=== PATIENT | male | born 1995 | race Caucasian/White ===

== ENCOUNTER 2018-11-28 19:56 | Emergency (ER) | payer BC, MEDICAID ==
[~2018-11-28] VITALS: Ht 154.9 cm; Wt 79.5 kg
[~2018-11-28 19:56] MED LIST: PEDI1TAB17 PO
[2018-11-28 19:59] VITALS: BP 164/109
[2018-11-28] MEDS ORDERED: ondansetron/PF 4mg/2ml inj IV ONE (20:15)
[2018-11-28] MEDS ORDERED: famotidine/PF 10 mg/ml inj IV ONE (20:15)
[2018-11-28] MEDS ORDERED: pantoprazole 40 MG vial IV ONE (20:15)
[2018-11-28] MEDS ORDERED: normal saline 1000ML IV soln IVB ONE (20:15)
--- NOTE | 2018-11-28 20:30 | NUR ---
parents were able to get the patient onto the gurney.
--- NOTE | 2018-11-28 20:37 | NUR ---
PER ELIAS GOSS, EKG NOT NEEDED AT THIS TIME.
[2018-11-28 20:42] LABS: BASOPHILS # (AUTO) 0.1 X10'3 (0-0.2); BASOPHILS % (AUTO) 0.7 % (0-1); EOSINOPHILS # (AUTO) 0.1 X10'3 (0-0.9); EOSINOPHILS % (AUTO) 0.8 % (0-6); HEMATOCRIT 38.7 % (42.0-52.0); HEMOGLOBIN 11.4 g/dl (14.0-17.9); LYMPHOCYTES # (AUTO) 0.8 X10'3 (1.1-4.8); LYMPHOCYTES % (AUTO) 9.8 % (21-51); MEAN CORPUSCULAR HEMOGLOBIN 17.4 PG (27.0-31.0); MEAN CORPUSCULAR HGB CONC 29.6 g/dL (33.0-36.5); MEAN CORPUSCULAR VOLUME 58.8 FL (78-98); MEAN PLATELET VOLUME 8.8 FL (7.4-10.4); MONOCYTES # (AUTO) 0.3 X10'3 (0-0.9); MONOCYTES % (AUTO) 3.9 % (2-12); NEUTROPHILS # (AUTO) 6.7 X10'3 (1.8-7.7); NEUTROPHILS % (AUTO) 84.8 % (42-75); PLATELET COUNT 322 X10'3 (140-440); RED BLOOD COUNT 6.57 X10'6 (4.70-6.10); RED CELL DISTRIBUTION WIDTH 19.9 % (11.5-14.5); WHITE BLOOD COUNT 7.8 X10'3 (4.5-11.0)
[2018-11-28 21:03] LABS: ALANINE AMINOTRANSFERASE 20 U/L (12-78); ALBUMIN 4.4 G/DL (3.4-5.0); ALKALINE PHOSPHATASE 93 IU/L (46-116); ANION GAP 9 (8-16); ASPARTATE AMINO TRANSFERASE 18 U/L (10-37); BILIRUBIN,TOTAL 0.5 MG/DL (0.1-1.0); BLOOD UREA NITROGEN 19 MG/DL (7-18); BUN/CREATININE RATIO 20.7 (5.4-32.0); CALCIUM 9.2 MG/DL (8.5-10.1); CHLORIDE 105 MMOL/L (99-107); CREATININE 0.92 MG/DL (0.60-1.10); GLUCOSE 109 MG/DL (70-104); LIPASE 101 U/L (73-393); POTASSIUM 4.2 MMOL/L (3.5-5.1); SODIUM 141 MMOL/L (135-145); TOTAL CARBON DIOXIDE 27.3 MMOL/L (24-32); TOTAL PROTEIN 8.6 G/DL (6.4-8.2); eGFR > 90 ML/MIN
[2018-11-28 21:20] LABS: ANISOCYTOSIS 2+; MICROCYTOSIS 3+; PLATELET ESTIMATE NORMAL
[2018-11-28 21:21] LABS: ELLIPTOCYTES FEW; SCHISTOCYTES FEW
--- NOTE | 2018-11-28 21:50 | NUR ---
gave him approx 1500 mls of soda/sugar water enema and he has pushed some of the liquid out. Having it dwell. Will recheck in a bit. Mom at BS. Digital exam for only very soft bm, not able to feel any chunks that I can grab.
--- NOTE | 2018-11-28 22:00 | NUR ---
very large amount of bm. Pt cleansed.
--- NOTE | 2018-11-28 22:11 | NUR ---
another huge massive bm. Pt cleansed. Mom says she need an antifungal cream. He is started to break out.
[2018-11-28] MEDS ORDERED: terbinafine cream 30gm TP PRN (22:15)
--- NOTE | 2018-11-28 22:45 | NUR ---
Moderate sized BM at this time, hygiene provided, tolerated well, parents at bedside.
== END 2018-11-28 23:20 | disposition home or self-care (01) ==
LOC: ER 19:57
DX: K59.00 Constipation, unspecified (principal); K29.70 Gastritis, unspecified, without bleeding; Z90.49 Acquired absence of other specified parts of digestive tract; Z86.69 Personal history of other diseases of the nervous system and sense organs; Z79.899 Other long term (current) drug therapy
CPT/HCPCS: 36415; 74176; 80053; 83690; 85025; 96361; 96374; 96375; 99284; C9113; J2405; J3490; J7030

== ENCOUNTER 2019-01-04 00:14 | Emergency (ER) | payer MEDICAID ==
[~2019-01-04] VITALS: Ht 154.9 cm; Wt 77.3 kg
[2019-01-04] MEDS ORDERED: normal saline 1000ML IV soln IVB ONE (01:15)
[2019-01-04] MEDS ORDERED: lactulose 20gm/30ml cup PO ONE (01:15)
[2019-01-04] MEDS ORDERED: magnesium hydroxide 30ml (MOM) UD suspension PO ONE (01:15)
[2019-01-04 01:19] LABS: BASOPHILS # (AUTO) 0.1 X10'3 (0-0.2); BASOPHILS % (AUTO) 0.7 % (0-1); EOSINOPHILS # (AUTO) 0.3 X10'3 (0-0.9); EOSINOPHILS % (AUTO) 2.8 % (0-6); HEMATOCRIT 37.8 % (42.0-52.0); HEMOGLOBIN 11.5 g/dl (14.0-17.9); LYMPHOCYTES # (AUTO) 1.1 X10'3 (1.1-4.8); LYMPHOCYTES % (AUTO) 12.6 % (21-51); MEAN CORPUSCULAR HEMOGLOBIN 18.1 PG (27.0-31.0); MEAN CORPUSCULAR HGB CONC 30.3 g/dL (33.0-36.5); MEAN CORPUSCULAR VOLUME 59.9 FL (78-98); MEAN PLATELET VOLUME 8.7 FL (7.4-10.4); MONOCYTES # (AUTO) 0.5 X10'3 (0-0.9); NEUTROPHILS # (AUTO) 6.9 X10'3 (1.8-7.7); NEUTROPHILS % (AUTO) 77.9 % (42-75); PLATELET COUNT 295 X10'3 (140-440); RED BLOOD COUNT 6.32 X10'6 (4.70-6.10); RED CELL DISTRIBUTION WIDTH 20.3 % (11.5-14.5); WHITE BLOOD COUNT 8.9 X10'3 (4.5-11.0)
[2019-01-04 01:32] LABS: ALANINE AMINOTRANSFERASE 22 U/L (12-78); ALBUMIN 3.8 G/DL (3.4-5.0); ALKALINE PHOSPHATASE 93 IU/L (46-116); ANION GAP 9 (8-16); ASPARTATE AMINO TRANSFERASE 21 U/L (10-37); BILIRUBIN,TOTAL 0.3 MG/DL (0.1-1.0); BLOOD UREA NITROGEN 12 MG/DL (7-18); BUN/CREATININE RATIO 10.7 (5.4-32.0); CALCIUM 8.8 MG/DL (8.5-10.1); CHLORIDE 106 MMOL/L (99-107); CREATININE 1.12 MG/DL (0.60-1.10); GLUCOSE 149 MG/DL (70-104); LIPASE 85 U/L (73-393); POTASSIUM 3.4 MMOL/L (3.5-5.1); SODIUM 141 MMOL/L (135-145); TOTAL CARBON DIOXIDE 25.7 MMOL/L (24-32); TOTAL PROTEIN 7.6 G/DL (6.4-8.2); eGFR 79 ML/MIN
--- NOTE | 2019-01-04 02:15 | NUR ---
Pt en route to CT with radiology therapist and mom.
[2019-01-04] MEDS ORDERED: POTASSIUM BICARB 20meq eff tab 20 MEQ TABLET.EFF PO ONE (02:50)
[2019-01-04] MEDS ORDERED: normal saline 1000ml 1,000 ML IVB ONE (03:13)
[2019-01-04 04:07] LABS: ANISOCYTOSIS 3+; MICROCYTOSIS 3+; PLATELET ESTIMATE NORMAL
[2019-01-04 04:08] LABS: ELLIPTOCYTES 1+; LARGE PLATELETS FEW; SCHISTOCYTES FEW
[2019-01-04] MEDS ORDERED: MAGN400O6 PO (04:42)
--- NOTE | 2019-01-04 05:07 | NUR ---
pt mother declined to have UA done. Pt mother also did not want any medications administered until after CT results were avaiable. ordered sugar and soda enema to be administered. Enema administered as ordered with positive results.
== END 2019-01-04 05:41 | disposition home or self-care (01) ==
LOC: ER 00:14
DX: K59.00 Constipation, unspecified (principal); R11.2 Nausea with vomiting, unspecified; R10.32 Left lower quadrant pain; R10.33 Periumbilical pain; Z90.49 Acquired absence of other specified parts of digestive tract
CPT/HCPCS: 36415; 71250; 74176; 80053; 83605; 83690; 84145; 85025; 87040; 99284; J7030

== ENCOUNTER 2019-03-24 12:48 | Emergency (ER) | payer BC, MEDICAID ==
[~2019-03-24] VITALS: Ht 154.9 cm; Wt 77.3 kg
[~2019-03-24 12:48] MED LIST changes: +MAGN400O6 PO
[2019-03-24] MEDS ORDERED: sucralfate 1gm/10ml UD suspension PO SCH (13:20)
[2019-03-24] MEDS ORDERED: mag hydrox/Alum hydrox/simeth 30ml oral suspension PO ONE (13:20)
[2019-03-24] MEDS ORDERED: LIDOcaine Viscous 15ml cup MM PRN (13:20)
--- NOTE | 2019-03-24 13:49 | NUR ---
RELIEVING RN FOR BREAK, PT IS RESTING QUIETLY ON BED, FAMILY AT BEDSIDE
[2019-03-24] MEDS ORDERED: magnesium citrate 296ml oral solution PO ONE (13:55)
[2019-03-24] MEDS ORDERED: ondansetron/PF 4mg/2ml inj IV ONE (14:00)
[2019-03-24] MEDS ORDERED: morphine 4 MG/ML inj SYRINge IV PRN (14:00)
[2019-03-24] MEDS ORDERED: normal saline 1000ML IV soln IVB ONE (14:00)
[2019-03-24] MEDS ORDERED: famotidine/PF 10 mg/ml inj IV ONE (14:00)
[2019-03-24] MEDS ORDERED: pantoprazole 40 MG vial IV ONE (14:00)
--- NOTE | 2019-03-24 14:15 | NUR ---
PT TO CT
[2019-03-24 14:28] LABS: BASOPHILS % (AUTO) 1.1 % (0-1); EOSINOPHILS % (AUTO) 0.3 % (0-6); HEMATOCRIT 40.4 % (42.0-52.0); HEMOGLOBIN 12.5 g/dl (14.0-17.9); LYMPHOCYTES # (AUTO) 0.4 X10'3 (1.1-4.8); LYMPHOCYTES % (AUTO) 12.3 % (21-51); MEAN CORPUSCULAR HEMOGLOBIN 19.8 PG (27.0-31.0); MEAN CORPUSCULAR HGB CONC 30.9 g/dL (33.0-36.5); MEAN CORPUSCULAR VOLUME 64.2 FL (78-98); MONOCYTES # (AUTO) 0.8 X10'3 (0-0.9); MONOCYTES % (AUTO) 25.3 % (2-12); PLATELET COUNT 196 X10'3 (140-440); RED CELL DISTRIBUTION WIDTH 20.3 % (11.5-14.5); WHITE BLOOD COUNT 3.3 X10'3 (4.5-11.0)
[2019-03-24 14:57] LABS: ALANINE AMINOTRANSFERASE 22 U/L (12-78); ALBUMIN 3.9 G/DL (3.4-5.0); ALBUMIN/GLOBULIN RATIO 1.1 (1.1-1.5); ALKALINE PHOSPHATASE 87 IU/L (46-116); ANION GAP 9 (8-16); ASPARTATE AMINO TRANSFERASE 24 U/L (10-37); BILIRUBIN,TOTAL 0.5 MG/DL (0.1-1.0); BLOOD UREA NITROGEN 14 MG/DL (7-18); BUN/CREATININE RATIO 14.1 (5.4-32.0); CALCIUM 8.5 MG/DL (8.5-10.1); CHLORIDE 103 MMOL/L (99-107); CREATININE 0.99 MG/DL (0.60-1.10); GLUCOSE 98 MG/DL (70-104); LIPASE 100 U/L (73-393); POTASSIUM 3.6 MMOL/L (3.5-5.1); SODIUM 139 MMOL/L (135-145); TOTAL PROTEIN 7.5 G/DL (6.4-8.2); eGFR > 90 ML/MIN
[2019-03-24 15:13] LABS: ANISOCYTOSIS 3+; MICROCYTOSIS 2+; PLATELET ESTIMATE NORMAL; TOTAL CELLS COUNTED 100
[2019-03-24 15:14] LABS: HYPOCHROMASIA 1+
[2019-03-24] MEDS ORDERED: DIAZ5TAB5 PO (16:18)
[2019-03-24] MEDS ORDERED: MAGN400O6 PO (17:22)
[2019-03-24] MEDS ORDERED: acetaminophen 160mg/5ml oral suspension PO ONE (19:40)
[2019-03-24] MEDS ORDERED: OMEP20CA15 PO (19:44)
[2019-03-24] MEDS ORDERED: ONDA4TAB6 PO (19:44)
[2019-03-24] MEDS ORDERED: FAMO20TA44 PO (19:44)
[2019-03-24 20:03] VITALS: BP 132/84
[2019-03-25] MEDS ORDERED: FLU VACC QS2019-20 36MOS UP/PF 60 MCG/0.5 ML SYRINGE IMVAC ONE (10:00)
[2019-03-25] MEDS ORDERED: pneumococcal 23-VAL P-sac vacc 25 mcg/0.5ml vial IMVAC ONE (10:00)
== END 2019-03-24 20:10 | disposition home or self-care (01) ==
LOC: ER 12:48
DX: K59.00 Constipation, unspecified (principal); R10.84 Generalized abdominal pain; M54.9 Dorsalgia, unspecified; Z90.49 Acquired absence of other specified parts of digestive tract; Z86.69 Personal history of other diseases of the nervous system and sense organs; Z79.899 Other long term (current) drug therapy
CPT/HCPCS: 36415; 74018; 74176; 80053; 83605; 83690; 85025; 87081; 96374; 96375; 99284; C9113; J2270; J2405; J3490; J7030; 90732; 99285; Q2037

== ENCOUNTER 2019-12-29 08:33 | Emergency (ER) | payer MEDICAID ==
[~2019-12-29] VITALS: Ht 154.9 cm; Wt 63.6 kg
[~2019-12-29 08:33] MED LIST changes: +DIAZ5TAB5 PO; +FAMO20TA44 PO; +OMEP20CA15 PO; +ONDA4TAB6 PO; -PEDI1TAB17 PO
[2019-12-29] MEDS ORDERED: ondansetron/PF 4mg/2ml inj IV ONE (08:50)
[2019-12-29] MEDS ORDERED: normal saline 1000ML IV soln IVB ONE (08:50)
[2019-12-29] MEDS ORDERED: ketorolac trometh. 30mg/ml inj. IV ONE (08:50)
[2019-12-29 09:23] LABS: CLARITY,URINE SLIGHTLY CLOUDY (Clear); COLOR,URINE YELLOW (Yellow); GLUCOSE, URINE NEGATIVE (Neg); KETONES,URINE NEGATIVE (Neg); LEUKOCYTE ESTERASE ,URINE NEGATIVE (Neg); NITRITES, URINE NEGATIVE (Neg); OCCULT BLOOD,URINE NEGATIVE (Neg); PH,URINE 7.5 (4.8-8.0); PROTEIN,URINE 30 mg/dl (Neg)
[2019-12-29 09:24] LABS: BASOPHILS % (AUTO) 0.5 % (0-1); EOSINOPHILS # (AUTO) 0.2 X10'3 (0-0.9); EOSINOPHILS % (AUTO) 3.4 % (0-6); HEMATOCRIT 45.2 % (42.0-52.0); HEMOGLOBIN 15.6 g/dl (14.0-17.9); LYMPHOCYTES # (AUTO) 0.8 X10'3 (1.1-4.8); LYMPHOCYTES % (AUTO) 13.2 % (21-51); MEAN CORPUSCULAR HEMOGLOBIN 30.1 PG (27.0-31.0); MEAN CORPUSCULAR HGB CONC 34.5 g/dL (33.0-36.5); MEAN CORPUSCULAR VOLUME 87.4 FL (78-98); MEAN PLATELET VOLUME 8.2 FL (7.4-10.4); MONOCYTES # (AUTO) 0.6 X10'3 (0-0.9); MONOCYTES % (AUTO) 8.8 % (2-12); NEUTROPHILS # (AUTO) 4.8 X10'3 (1.8-7.7); NEUTROPHILS % (AUTO) 74.1 % (42-75); PLATELET COUNT 163 X10'3 (140-440); RED BLOOD COUNT 5.17 X10'6 (4.70-6.10); RED CELL DISTRIBUTION WIDTH 14.3 % (11.5-14.5); WHITE BLOOD COUNT 6.4 X10'3 (4.5-11.0)
[2019-12-29 09:25] LABS: UA COLLECTION TYPE STRAIGHT CATH
[2019-12-29 09:32] LABS: ALANINE AMINOTRANSFERASE 41 U/L (12-78); ALBUMIN 3.1 G/DL (3.4-5.0); ALBUMIN/GLOBULIN RATIO 0.8 (1.1-1.5); ALKALINE PHOSPHATASE 69 IU/L (46-116); ANION GAP 6 (8-16); ASPARTATE AMINO TRANSFERASE 52 U/L (10-37); BILIRUBIN,TOTAL 0.6 MG/DL (0.1-1.0); BLOOD UREA NITROGEN 12 MG/DL (7-18); BUN/CREATININE RATIO 13.3 (5.4-32.0); CALCIUM 8.5 MG/DL (8.5-10.1); CHLORIDE 104 MMOL/L (99-107); GLUCOSE 102 MG/DL (70-104); LIPASE 61 U/L (73-393); POTASSIUM 3.6 MMOL/L (3.5-5.1); SODIUM 137 MMOL/L (135-145); TOTAL PROTEIN 6.8 G/DL (6.4-8.2); eGFR > 90 ML/MIN
[2019-12-29 09:43] LABS: MUCUS STRANDS MANY /LPF (Neg); WBC,URINE 0-4 /HPF (0-4)
[2019-12-29 09:44] LABS: AMORPHOUS PHOSPHATES 1+; BACTERIA,URINE FEW /HPF (Neg); HYALINE CASTS 0-3 /LPF (NEGATIVE); RBC,URINE NONE SEEN /HPF (0-2); SQUAMOUS EPITHELIAL CELL,UR NONE SEEN /LPF (FEW)
[2019-12-29] MEDS ORDERED: iohexol 350MG/ML 100ml bottle IV ONE (12:29)
--- NOTE | 2019-12-29 12:31 | NUR ---
Assisted patients mother with depends change and maggie care. Pt repositioned in [facility]. Pt updated with plan of care and is awaiting CT.
[2019-12-29 13:57] VITALS: BP 149/99
[2019-12-29] MEDS ORDERED: OXYC-658 PO ×3 (21:14→22:15)
[2019-12-29] MEDS ORDERED: POLY119P2 PO (21:14)
== END 2019-12-29 14:39 | disposition home or self-care (01) ==
LOC: ER 08:33
DX: G89.18 Other acute postprocedural pain (principal); R10.9 Unspecified abdominal pain; Z79.899 Other long term (current) drug therapy; Z90.49 Acquired absence of other specified parts of digestive tract
CPT/HCPCS: 36415; 71045; 71275; 80053; 81001; 83690; 85025; 96361; 96374; 96375; 99285; J1885; J2405; J7030; Q9967; 96360

== ENCOUNTER 2019-12-29 19:13 | Emergency (ER) | payer MEDICAID ==
[~2019-12-29] VITALS: Ht 167.6 cm; Wt 69.6 kg
--- NOTE | 2019-12-29 19:25 | NUR ---
patient states he hurst with his poop and it is runny. Wearing attends
--- NOTE | 2019-12-29 19:48 | NUR ---
mom at bedside
--- NOTE | 2019-12-29 19:48 | NUR ---
mom reports son awoke after dc home and began screaming and crying. Meds were given reports son hysterically crying and he has a high pain toleranc. Dr Ames at [facility] called and symptoms reported to him. Steph NERI in room
[2019-12-29] MEDS ORDERED: ketorolac tromethamine 15mg/ml inj. IV ONE (20:10)
[2019-12-29 20:36] LABS: BASOPHILS % (AUTO) 0.4 % (0-1); EOSINOPHILS # (AUTO) 0.3 X10'3 (0-0.9); HEMATOCRIT 43.9 % (42.0-52.0); HEMOGLOBIN 14.8 g/dl (14.0-17.9); LYMPHOCYTES # (AUTO) 1.2 X10'3 (1.1-4.8); LYMPHOCYTES % (AUTO) 17.1 % (21-51); MEAN CORPUSCULAR HEMOGLOBIN 29.5 PG (27.0-31.0); MEAN CORPUSCULAR HGB CONC 33.8 g/dL (33.0-36.5); MEAN CORPUSCULAR VOLUME 87.2 FL (78-98); MEAN PLATELET VOLUME 8.2 FL (7.4-10.4); MONOCYTES # (AUTO) 0.6 X10'3 (0-0.9); MONOCYTES % (AUTO) 9.4 % (2-12); NEUTROPHILS # (AUTO) 4.7 X10'3 (1.8-7.7); NEUTROPHILS % (AUTO) 69.1 % (42-75); PLATELET COUNT 161 X10'3 (140-440); RED BLOOD COUNT 5.03 X10'6 (4.70-6.10); WHITE BLOOD COUNT 6.9 X10'3 (4.5-11.0)
[2019-12-29] MEDS ORDERED: iohexol 300mg/ml 100ml inj. ONE (20:44)
[2019-12-29 20:49] LABS: ALANINE AMINOTRANSFERASE 48 U/L (12-78); ALBUMIN 3.1 G/DL (3.4-5.0); ALBUMIN/GLOBULIN RATIO 0.9 (1.1-1.5); ALKALINE PHOSPHATASE 69 IU/L (46-116); ANION GAP 9 (8-16); ASPARTATE AMINO TRANSFERASE 62 U/L (10-37); BILIRUBIN,TOTAL 0.7 MG/DL (0.1-1.0); BLOOD UREA NITROGEN 9 MG/DL (7-18); BUN/CREATININE RATIO 11.1 (5.4-32.0); CALCIUM 8.2 MG/DL (8.5-10.1); CHLORIDE 103 MMOL/L (99-107); CREATININE 0.81 MG/DL (0.60-1.10); GLUCOSE 97 MG/DL (70-104); LIPASE 63 U/L (73-393); POTASSIUM 3.6 MMOL/L (3.5-5.1); SODIUM 137 MMOL/L (135-145); TOTAL CARBON DIOXIDE 25.5 MMOL/L (24-32); TOTAL PROTEIN 6.5 G/DL (6.4-8.2); eGFR > 90 ML/MIN
[2019-12-29] MEDS ORDERED: POLY119P2 PO (21:14)
[2019-12-29] MEDS ORDERED: OXYC-658 PO ×3 (21:14→22:15)
[2019-12-29 22:34] VITALS: BP 118/90
== END 2019-12-29 22:35 | disposition home or self-care (01) ==
LOC: ER 19:13
DX: G89.18 Other acute postprocedural pain (principal); R10.9 Unspecified abdominal pain; G80.9 Cerebral palsy, unspecified; Z90.49 Acquired absence of other specified parts of digestive tract; Z79.899 Other long term (current) drug therapy
CPT/HCPCS: 36415; 74177; 80053; 83605; 83690; 85025; 85610; 96374; 99285; J1885; Q9967

== ENCOUNTER 2024-10-16 11:46 | Emergency (ER) | payer MEDICAID ==
[~2024-10-16] VITALS: Ht 154.9 cm; Wt 72.7 kg
[~2024-10-16 11:46] MED LIST changes: -MAGN400O6 PO; -OMEP20CA15 PO; +OXYC-658 PO; +POLY119P2 PO
[2024-10-16 11:56] VITALS: BP 162/117; PULSE 93; RESP 16; TEMP 98.1; O2SAT 98
--- NOTE | 2024-10-16 14:12 | Physician Documentation ---
HPI ~ General Chief Complaint: Tooth Problem Stated Complaint: ABSCESS TOOTH Time Seen by MD: 13:45 History of Present Illness HPI Comment This is a 29-year-old male history of developmental delay who presents with right upper dental pain and infection patient is accompanied by his mother/caregiver who reports patient just finished a course of Augmentin though the infected area is still present and painful. Patient's caregiver reports that he is unable to get into a dentist appointment until February due to insurance issues. Patient is reported to be otherwise well and no fever is reported. Medication Reconciliation Allergies: Coded Allergies: No Known Allergies (Unverified , 10/16/24) Scheduled Clindamycin HCl (Clindamycin HCl CAPSULE), 3 CAP PO TID Diazepam (Diazepam), 1 TAB PO TID, (Reported) Famotidine (Pepcid AC), 1 TAB PO BID Polyethylene Glycol 3350 (Miralax), 17 GM PO DAILY, (Reported) Scheduled PRN Ondansetron Hcl (Zofran), 1 TAB PO Q6H PRN for nausea/vomiting Oxycodone Hcl IR* (Oxycodone IR*), 1 TAB PO Q4H PRN for moderate or severe pain, (Reported) Oxycodone Hcl IR* (Oxycodone IR*), 1 TAB PO Q8H PRN for moderate to severe pain, (Reported) Past Medical History Past Medical History: Seizures Past Surgical History: cholecystectomy Other Past Family History: Reviewed, not significant Alcohol Use: None Drug Use: none Lives with: Family Lives In: Home Review of Systems ROS As stated above in the HPI, otherwise all systems are reviewed and negative. Physical Exam Vital Signs: Temperature: 98.1, Source: Temporal, Heart Rate: 93, Respiratory Rate: 16, BP: 162/117, Pulse Oximetry: 98, Weight: 72.730 Oxygen Flow Rate: 0 Physical Exam VITALS: Reviewed and as above. GENERAL: Alert, nontoxic appearing, no apparent distress. HEENT: Right upper rear lateral gingiva above 2nd molar erythematous swollen with an area of spontaneous purulent drainage, right upper rear 2nd molar severely decayed. No facial swelling, no elevation of the tongue, no submandibular swelling, no drooling RESPIRATORY: No increased work of breathing, no respiratory distress, speaking without difficulty Progress Results/Orders Results/Orders Vital Signs 10/16/24 11:56 Temp 98.1 Pulse 93 Resp 16 B/P (MAP) 162/117 Pulse Ox 98 O2 Flow Rate 0 Medical Decision Making Findings This well appearing 29-year-old developmentally delayed male presented with dental pain to the right upper lateral gingiva above 2nd molar. Based on history and physical exam I have low clinical suspicion for peritonsillar abscess, uvulitis, deep tissue space infection of the head/neck, or impending airway compromise. There was no submandibular swelling or elevation of the tongue, the uvula was midline, patient is able to swallow fluids and secretion without difficulty, there is no increased work of breathing or noisy breathing. Physical exam was consistent with a dental abscess, it was reassuring that this abscess appears to be spontaneously draining. Based on presentation I am concerned for odontogenic infection and antibiotic treatment with clindamycin is indicated. Pain control with non-narcotic medications is appropriate at this time. Patient's caregiver advised that patient needs to follow up as soon as possible with a dentist which she verbalized understanding of. Careful return to care precautions discussed with the caregiver who verbalized understanding. Differential Dx:Considerations: Include: Alveolar fracture, Alveolar osteitis, ANUG, Facial Cellulitis, Periapical abscess, Peridontal abscess, Pulpitis, Tooth avulsion Departure Time of Disposition: 14:10 Disposition: 01 HOME / SELF CARE / HOMELESS Impression: Primary Impression: Dental abscess Condition: Improved Discharge Instructions: Dental Abscess Additional Instructions: It is reassuring the dental abscess is spontaneously draining. Please use the p rescribed antibiotics as directed, follow up with a dentist as soon as possible. Please follow up with your primary care provider in the next few days. Please return to the emergency department for any new or worsening concerning symptoms including but not limited to worsening pain or swelling to the face, difficulty breathing or swallowing, or if he develops a fever over 100.4 that does not lower with ibuprofen or Tylenol. Referrals: NO PRIMARY CARE PROVIDER (PCP) Prescriptions Clindamycin HCl (Clindamycin HCl CAPSULE) 150 Mg Capsule 3 CAP PO TID for 10 Days, #90 CAP Prov: NIA TROY 10/16/24 Education Educated: Patient Educated regarding: diagnosis, treatment, prognosis, need for follow up Signature Scribe Signature: No scribe Attestation: The note accurately reflects work and decisions made by me.LEROY Benedict 10/16/24 20:44 NIA TROY [facility] Oct 16, 2024 14:12
[2024-10-16] MEDS ORDERED: CLIN-214 PO (14:17)
== END 2024-10-16 14:42 | disposition home or self-care (01) ==
LOC: ER 11:49
DX: K04.7 Periapical abscess without sinus (principal); Z90.49 Acquired absence of other specified parts of digestive tract
CPT/HCPCS: 99283